=== PATIENT | male | born 1950 | race Caucasian/White ===

== ENCOUNTER 2019-09-11 10:10 | Outpatient (CLI) | payer MEDICARE, BC ==
--- NOTE | 2019-09-11 10:45 | CT ---
LUMBAR SPINE CT WITHOUT CONTRAST: HISTORY: Patient fell 3 years ago. Low back pain. COMPARISON: 05/25/2016. FINDINGS: There are 5 lumbar-type vertebrae. Lumbar spine vertebral body height is maintained. No fracture. No spondylolisthesis. No spondylolysis Stable mild compression fracture involving the T12 vertebral body. Endplate changes with sclerosis ar e felt to be chronic. No significant retropulsion. No paraspinal mass or hematoma. Visualized solid organs are grossly unremarkable. Atherosclerosis of a nonaneurysmal aorta. Visualized sacrum and bony pelvis are intact T11-T12 and T12-L1: No high-grade central canal stenosis. Mild left foraminal narrowing at T12-L1. L1-L2: No significant central canal stenosis or significant neural foraminal narrowing. L2-L3: Broad-based disc bulge, ligament flavum thickening and facet hypertrophy result in mild centra l canal stenosis. Bilaterally, neural foramina are patent. L3-L4: Broad-based disc bulge, ligamentum flavum thickening and facet hypertrophy result in moderate central canal stenosis. Bilaterally the neural foramina are patent. L4-L5: Broad-based disc bulge, ligament flavum thickening and facet hypertrophy result in mild centra l canal stenosis. Bilaterally neural foramina are patent. L5-S1: Broad-based disc bulge abuts the thecal sac. There is encroachment upon the right subarticular zone. No severe mass effect or obscuration of the traversing right S1 nerve root. No significant stenosis of the thecal sac. Mild bilateral neural foraminal narrowing. IMPRESSION: 1. Chronic changes involving the inferior aspect of T12. 2. No acute lumbar spine fracture. 3. Interval worsening stenosis of the central spinal canal at L3-L4. Transcribed Date/Time: 09/11/2019 11:50 AM
--- NOTE | 2019-09-11 10:54 | RAD ---
EXAM: XR Lumbar Spine Bending Min 4V PROVIDED CLINICAL HISTORY: Low back pain. COMPARISON: 05/04/2016 FINDINGS: There is a stable mild compression fracture involving the T12 vertebral body with inferior endplate d egenerative changes seen. Scattered osteophytes are seen anteriorly. Vertebral body heights of the lumbar spine are within normal limits. There is minimal narrowing of the L5-S1 intervertebral disc sp netta. No fracture or subluxation is seen involving the lumbar spine. No abnormal translational motion is seen between the flexion and extension views lumbar spine. Calcifications overlie the upper abdomen bilaterally likely due to vascular calcifications. Dense vas cular calcification are seen in the abdominal aorta and involving the iliac arteries. IMPRESSION: 1. Mild degenerative changes lumbar spine. No fracture or subluxation is seen involving lumbar spine. 2. Stable mild compression fracture T12 vertebral body with inferior endplate degenerative changes
--- NOTE | 2019-09-11 11:36 | MRI ---
MR lumbar spine: 09/11/2019 COMPARISON: None HISTORY: Back pain, left-sided radiculopathy TECHNIQUE: Multiplanar multisequence MR imaging of the lumbar spine without contrast FINDINGS: On the basis of 5 lumbar type vertebral bodies, conus medullaris terminates at T12-L1. Sagittal STIR imaging demonstrates no focal area of osseous marrow edema. T12-L1: There is disc space narrowing and disc desiccation. Mild bilateral facet hypertrophy. No sign ificant central canal or neural foraminal stenosis. L1-2: Disc desiccation and mild disc space narrowing. Mild bilateral facet hypertrophy. No central ca nal or neural foraminal stenosis. L2-3: There is disc space narrowing and disc desiccation with mild disc bulge. Small central annular tear. Mild bilateral facet hypertrophy. No central canal or neural foraminal stenosis. L3-4: Disc space narrowing and disc desiccation with mild disc bulge. Mild bilateral facet hypertroph y. No significant central canal or neural foraminal stenosis. L4-5: There is disc space narrowing and disc desiccation with mild disc bulge and mild bilateral face t hypertrophy. No significant central canal or neural foraminal stenosis. L5-S1: There is disc space narrowing and a small central disc herniation. No associated central canal stenosis or neural foraminal stenosis. Image retroperitoneal structures demonstrate no acute findings. Partially imaged sigmoid diverticulos is noted. Schmorl's node and old mild inferior endplate fracture noted at T12. IMPRESSION: No significant central canal or neural foraminal stenosis within the lumbar spine.
== END 2019-09-11 10:11 | disposition home or self-care (01) ==
LOC: CT 10:10
PROVIDERS: ATTEND Surgery
DX: M54.5 Low back pain (principal); M48.061 Spinal stenosis, lumbar region without neurogenic claudication; S22.089A Unspecified fracture of T11-T12 vertebra, initial encounter for closed fracture; M47.816 Spondylosis without myelopathy or radiculopathy, lumbar region
CPT/HCPCS: 72120; 72131; 72148

== ENCOUNTER 2020-12-29 10:12 | Outpatient (CLI) | payer MEDICARE, BC ==
--- NOTE | 2020-12-29 11:18 | MRI ---
MRI lumbar spine noncontrast: HISTORY: Lumbar stenosis. Patient fell 5-6 years ago. Previous vertebral body fracture. COMPARISON: Lumbar spine MRI 09/11/2019. CORRELATION: Lumbar spine CT 09/11/2019. FINDINGS: Stable loss of vertebral body height and edema at the T12 level. Appropriate marrow signal intensity of the lumbar vertebra. Lumbar spine vertebral body heights are maintained. No fracture. No significant STIR hyperintensity to suggest ligamentous injury or vertebral body edema. Appropriate si gnal intensity of the visualized paraspinal muscles and solid organs. Conus medullaris terminates at the mid L1 level. T12-L1:Adequate disc hydration. Broad-based disc bulge minimally contacts the ventral thecal sac. No significant central canal stenosis. Right neural foramen is patent. Minimal left neural foraminal narrowing. L1-L2:Adequate disc hydration. No posterior disc abnormalities. No significant central canal stenosis . Patent bilateral neural foramina. L2-L3:Adequate disc hydration. No significant loss of disc space height. Broad-based disc bulge, liga ment flavum thickening and facet hypertrophy result in mild central canal stenosis. Patent bilateral neural foramina. L3-L4:Adequate disc hydration. No significant loss of disc space height. Broad-based disc bulge resul ts in mild central canal stenosis. Narrowing of the right subareolar zone with contact upon the traversing right L4 nerve root. No significant obscuration. Bilaterally, neural foramina are patent. L4-L5:Adequate disc hydration. No significant loss of disc space height. Broad based disc bulge abuts the thecal sac. There is mild ligamentum flavum thickening and facet hypertrophy. There is encroachment upon bilateral subarticular zones. Contact upon bilateral traversing L5 nerve roots, unc hanged. No significant neural foraminal narrowing. L5-S1:Adequate disc hydration. Central disc herniation contacts the ventral epidural fat. There is bi lateral facet hypertrophy. No significant central canal stenosis or significant neural foraminal narrowing. IMPRESSION: 1. Stable changes at T12. 2. Stable degenerative changes of the lumbar spine as described above. Transcribed Date/Time: 12/29/2020 1:12 PM
--- NOTE | 2020-12-29 12:57 | RAD ---
LUMBAR SPINE 4 VIEWS: HISTORY: Lumbar stenosis. Recent fall. COMPARISON: 09/11/2019. FINDINGS: Lumbar vertebrae maintain height and alignment. Mild wedge compression of T12 is stable. Degenerative osteophytes at T11-T12 and T12-L1 are stable. Disk spaces below L1 are maintained and unchanged. Disk space narrowing at T12-L1 is stable. IMPRESSION: Stable findings from 09/11/2019. POS: [facility]
== END 2020-12-29 10:13 | disposition home or self-care (01) ==
LOC: SCSMRI 10:12
PROVIDERS: ATTEND Surgery
DX: M48.062 Spinal stenosis, lumbar region with neurogenic claudication (principal); M47.816 Spondylosis without myelopathy or radiculopathy, lumbar region
CPT/HCPCS: 72120; 72148